=== PATIENT | female | born 1995 | race Two or more races ===

== ENCOUNTER 2024-03-07 11:40 | Emergency (ER) | payer OTHER ==
[~2024-03-07] VITALS: Ht 160 cm; Wt 79.3 kg
[2024-03-07 11:54] VITALS: TEMP 98.3
[2024-03-07] MEDS: ACETAMINOPHEN 500 MG TABLET PO ONE (12:29)
[2024-03-07] MEDS: MAG HYDROX/ALUMINUM HYD/SIMETH ES 30 ML SUSPENSION UDCUP PO ONE (12:29)
[2024-03-07 12:33] LABS: APPEARANCE,URINE HAZY (CLEAR); BILIRUBIN,URINE NEGATIVE (NEGATIVE); COLOR,URINE LIGHT YELLOW (YELLOW); GLUCOSE, URINE (UA) NEGATIVE (NEGATIVE); KETONES,URINE NEGATIVE (NEGATIVE); LEUKOCYTE ESTERASE ,URINE NEGATIVE (NEGATIVE); NITRATE,URINE NEGATIVE (NEGATIVE); OCCULT BLOOD,URINE TRACE (NEGATIVE); PH,URINE 6.5 (5.0-8.0); PROTEIN,URINE NEGATIVE (NEGATIVE); SPECIFIC GRAVITIY, URINE 1.005 (1.003-1.030); UROBILINOGEN,URINE <=1.0 mg/dL (<=1.0)
[2024-03-07 12:43] LABS: RBC,URINE None Seen /HPF (0-2)
[2024-03-07 12:44] LABS: BACTERIA,URINE Few /HPF (None Seen); SQUAMOUS EPITHELIAL CELL,UR Few /LPF (None Seen); WBC,URINE None Seen /HPF (0-5)
[2024-03-07 13:42] LABS: BASOPHILS % (AUTO) 0.5 % (0.0-2.0); EOSINOPHILS % (AUTO) 0.7 % (1.0-6.0); HEMATOCRIT 35.8 % (36-46); HEMOGLOBIN 12.1 g/dL (12.0-16.0); LYMPHOCYTES # (AUTO) 1.6 K/uL (1.0-4.8); LYMPHOCYTES % (AUTO) 14.5 % (22.0-44.0); MEAN CORPUSCULAR HEMOGLOBIN 30.1 pg (26.0-34.0); MEAN CORPUSCULAR HGB CONC 33.8 G/dL (31.0-37.0); MEAN CORPUSCULAR VOLUME 89 fL (80-100); MONOCYTES # (AUTO) 0.7 K/uL (0.1-1.0); MONOCYTES % (AUTO) 6.2 % (2.0-9.0); NEUTROPHILS # (AUTO) 8.6 K/uL (1.8-7.7); NEUTROPHILS % (AUTO) 78.1 % (40.0-70.0); PLATELET COUNT (AUTO) 260 K/uL (150-450); RED BLOOD CELL COUNT(AUTO) 4.01 MIL/uL (4.00-5.20); RED CELL DISTRIBUTION WIDTH 13.7 % (11.5-14.5); WHITE BLOOD COUNT (AUTO) 11.1 K/uL (4.5-11.0)
[2024-03-07 13:50] VITALS: BP 128/74; PULSE 98; RESP 16; O2SAT 98
[2024-03-07] MEDS ORDERED: OMEP20 PO (14:00)
[2024-03-07] MEDS ORDERED: ACET-66 PO (14:00)
[2024-03-07] MEDS ORDERED: MAG30ORA11 PO (14:00)
[2024-03-07 14:12] LABS: ANION GAP 12 mmol/L (8-16); CALCIUM, TOTAL 9.4 mg/dL (8.8-10.5); CARBON DIOXIDE 22 mmol/L (22-29); CHLORIDE 103 mmol/L (98-107); GLOMERULAR FILTR. RATE CALC > 60 mL/min (>60); GLUCOSE,RANDOM 123 mg/dL (70-110); POTASSIUM 3.3 mmol/L (3.5-5.1); SODIUM SERUM 137 mmol/L (136-145); UREA NITROGEN, BLOOD 8 mg/dL (7-18)
[2024-03-07 14:23] LABS: ALANINE AMINOTRANSFERASE 11 U/L (12-78); ALBUMIN 2.3 g/dL (3.4-5.0); ALKALINE PHOSPHATASE 71 U/L (46-116); ASPARTATE AMINOTRANSFERASE 9 U/L (15-37); BILIRUBIN,TOTAL 0.2 mg/dL (0.1-1.0); LIPASE 21 U/L (16-77); TOTAL PROTEIN, SERUM 6.5 g/dL (6.4-8.2)
[2024-03-07] MEDS ORDERED: PREN1TAB26 PO (14:25)
[2024-03-07] MEDS ORDERED: CHOL200059 PO (14:25)
[2024-03-07] MEDS ORDERED: FAMO20TA8 PO (14:25)
[2024-03-07] MEDS: POTASSIUM CHLORIDE 20 MEQ ER TABLET PO ONE (14:25)
== END 2024-03-07 14:34 | disposition home or self-care (01) ==
LOC: EMS 11:40
DX: O26.892 Other specified pregnancy related conditions, second trimester (principal); E87.6 Hypokalemia; Z3A.24 24 weeks gestation of pregnancy
CPT/HCPCS: 76805; 80048; 80076; 81001; 83690; 85025; 99284